=== PATIENT | male | born 1970 | race Caucasian/White ===

== ENCOUNTER 2020-08-08 16:00 | Emergency (ER) | payer BC ==
[~2020-08-08 16:00] MED LIST: CIPRO500 MG PO; CYCLOBENZAPRINE10 MG PO; FLAGYL500 MG PO; IBU800 MG PO
[2020-08-08] MEDS ORDERED: PREDNISONE 50 M50 MG PO (17:04)
[2020-08-08] MEDS ORDERED: NAPROXEN500 MG PO (17:04)
[2020-08-08] MEDS ORDERED: Flexeril PO (17:04)
== END 2020-08-08 18:30 | disposition home or self-care (01) ==
LOC: ER1 16:00
DX: M54.41 Lumbago with sciatica, right side (principal); E78.5 Hyperlipidemia, unspecified; E03.9 Hypothyroidism, unspecified
CPT/HCPCS: 99283; J1885

== ENCOUNTER → 2020-12-23 | Outpatient (CLI) | payer BC ==
[~2020-12-23] MED LIST changes: +Flexeril PO; +NAPROXEN500 MG PO; +PREDNISONE 50 M50 MG PO
== END ==
LOC: EXRD 09:36
DX: M54.50 Low back pain, unspecified (principal)
CPT/HCPCS: 72100

== ENCOUNTER → 2021-09-29 | Outpatient (CLI) | payer BC | LOC: KOH-I 15:29 | DX: E03.9 Hypothyroidism, unspecified (principal) | CPT/HCPCS: 76536 ==

== ENCOUNTER → 2021-10-14 | Outpatient (CLI) | payer BC | LOC: CT 08:36 | DX: R59.0 Localized enlarged lymph nodes (principal) | CPT/HCPCS: 36415; 70491; 82565; 84520; Q9967 ==

== ENCOUNTER → 2021-12-12 | Outpatient (CLI) | payer BC | LOC: EXRD 12-06 13:00 | DX: R59.1 Generalized enlarged lymph nodes (principal) | CPT/HCPCS: 76536 ==